=== PATIENT | female | born 1950 | race Asian ===

== ENCOUNTER 2016-12-02 05:00 | Emergency (ER) | payer OTHER ==
[~2016-12-02] VITALS: Ht 154.9 cm; Wt 61.4 kg
[2016-12-02] MEDS ORDERED: MULT1CAP32 PO (05:11)
[2016-12-02] MEDS ORDERED: OS500 PO (05:11)
[2016-12-02] MEDS ORDERED: METF500T4 PO (05:11)
[2016-12-02] MEDS ORDERED: IBUP200C5 PO (05:11)
[2016-12-02] MEDS ORDERED: ENAL5 PO (05:11)
[2016-12-02] MEDS ORDERED: ATOR10TA84 PO (05:11)
[2016-12-02] MEDS ORDERED: SODIUM CHLORIDE 0.9% 1,000 ML IV ONE (05:15)
[2016-12-02] MEDS ORDERED: ACETAMINOPHEN 500 MG TABLET PO ONE (05:15)
[2016-12-02 05:17] LABS: GLUCOSE,POINT OF CARE 203 MG/DL (70-110)
[2016-12-02 05:47] LABS: BASOPHILS # (AUTO) 0.01 K/uL (0.00-0.20); BASOPHILS % (AUTO) 0.2 % (0.0-2.0); EOSINOPHILS % (AUTO) 0.01 % (1.0-6.0); HEMATOCRIT 34.7 % (36-46); HEMOGLOBIN 11.9 g/dL (12.0-16.0); LYMPHOCYTES # (AUTO) 1.1 K/uL (1.0-4.8); LYMPHOCYTES % (AUTO) 20.7 % (22.0-44.0); MEAN CORPUSCULAR HEMOGLOBIN 28.3 pg (26.0-34.0); MEAN CORPUSCULAR HGB CONC 34.2 G/dL (31.0-37.0); MEAN CORPUSCULAR VOLUME 83 fL (80-100); MONOCYTES # (AUTO) 0.3 K/uL (0.1-1.0); MONOCYTES % (AUTO) 6.2 % (2.0-9.0); NEUTROPHILS # (AUTO) 3.8 K/uL (1.8-7.7); NEUTROPHILS % (AUTO) 72.8 % (40.0-70.0); PLATELET COUNT (AUTO) 217 K/uL (150-450); RED BLOOD CELL COUNT(AUTO) 4.19 MIL/uL (4.00-5.20); WHITE BLOOD COUNT (AUTO) 5.2 K/uL (4.5-11.0)
[2016-12-02 05:50] LABS: ANION GAP 11 mmol/L (8-16); CALCIUM, TOTAL 7.7 mg/dL (8.8-10.5); CARBON DIOXIDE 26 mmol/L (22-29); CHLORIDE 103 mmol/L (98-107); CREATININE 0.79 mg/dL (0.60-1.30); GLOMERULAR FILTR. RATE CALC > 60 mL/min (>60); POTASSIUM 4.4 mmol/L (3.5-5.1); SODIUM SERUM 140 mmol/L (136-145); UREA NITROGEN, BLOOD 11 mg/dL (7-18)
[2016-12-02 05:56] LABS: ALANINE AMINOTRANSFERASE 43 U/L (12-78); ALBUMIN 3.5 g/dL (3.4-5.0); ASPARTATE AMINOTRANSFERASE 51 U/L (15-37); BILIRUBIN,TOTAL 0.4 mg/dL (0.1-1.0)
[2016-12-02 07:02] LABS: INFLUENZA TYPE B NEGATIVE FOR TYPE B (NEGATIVE)
[2016-12-02 07:20] VITALS: BP 114/58
== END 2016-12-02 07:50 | disposition home or self-care (01) ==
LOC: EMS 05:01
DX: B34.9 Viral infection, unspecified (principal)
CPT/HCPCS: 36415; 51701; 71010; 80053; 82962; 83605; 85025; 87804; 93005; 96360; 99285; J7030